=== PATIENT | female | born 1995 | race Caucasian/White ===

== ENCOUNTER 2023-01-31 13:39 | Observation (INO) | payer OTHER, MEDICAID, SELFPAY ==
--- NOTE | ~2023-01-31 | US_ITS ---
EXAMINATION: US renal BI DATE: 01/31/2023 16:22 INDICATION: Right flank pain TECHNIQUE: Multiple grayscale and Doppler ultrasound images of the kidneys were obtained. COMPARISON: None. FINDINGS: The right kidney measures 11.0 x 5.0 x 4.7 cm. A 6 mm hyperechoic focus of the right kidney upper pole likely represents a nonobstructing stone. The left kidney measures 11.2 x 5.0 x 5.1 cm. T he kidneys demonstrate normal parenchymal echogenicity. There is no hydronephrosis. The bladder is no rmal. IMPRESSION: 1. No sonographic correlate for the patient's symptoms. Reviewed, dictated and finalized at location L.
[2023-01-31 14:05] VITALS: BP 103/55; PULSE 82; RESP 20; TEMP 36.8; BMI 24.5
--- NOTE | 2023-01-31 14:07 | PC.NURSE ---
Dr. Aquino informed of this walk in's arrival by ambulance at 25 6/7 wks with c/o right flank pain that restarted this morning and has gotten progressively stronger and currently rates pain as a 9 out of 10. Pt has a history of kidney stones. Pt has a saline lock in from the ambulance. Orders received.
--- NOTE | 2023-01-31 14:10 | OBADM ---
This patient, Iesha Maza, admitted to the OB room [facility] for observation. Patient/family oriented to hospital policies and general routines including ID bracelet, bed and alarms, visiting hours, pain management, procedures, bathroom and other care routines, personal items, smoking policy, room service/diet, and visiting hours. Patient/Family are encouraged to report perceived risks to care and to ask questions if they do not understand what they are told or what they should do.
[2023-01-31 14:15] VITALS: BP 104/60; PULSE 76
--- NOTE | 2023-01-31 14:28 | PC.NURSE ---
Pt refused the Fentanyl for pain. Dr. Aquino OK'd IV Tylenol.
[2023-01-31] MEDS: DEXTROSE 5%/LACTATED RINGERS 1,000 ML 999 ML IV CONT (14:35)
[2023-01-31 14:58] LABS: Basophils Percent Auto 0.4 % (0.2-1.2); Eosinophils Absolute Auto 0.1 K/mm3 (0-0.3); Eosinophils Percent Auto 0.7 % (0-4.4); Hematocrit 31.7 % (37.0-47.0); Hemoglobin 10.7 g/dL (12.0-15.0); Immature Granulocyte Absolute 0.06 K/mm3 (0.00-0.031); Immature Granulocyte Percent A 0.6 % (0-0.5); Lymphocytes Absolute Auto 1.66 K/mm3 (0.9-3.2); Lymphocytes Percent Auto 16.7 % (18.3-44.2); Mean Corpuscular HGB Conc 33.8 g/dl (32-36); Mean Corpuscular Hemoglobin 32.4 pg (26-34); Mean Corpuscular Volume 96.1 fl (80-100); Mean Platelet Volume 9.8 fl (7.4-10.4); Monocytes Absolute Auto 0.5 K/mm3 (0.1-0.6); Monocytes Percent Auto 4.9 % (2.6-8.5); Neutrophils Absolute Auto 7.6 K/mm3 (1.3-6.7); Neutrophils Percent Auto 76.7 % (45.5-73.1); Platelet Count Result 171 k/mm3 (150-375); Red Cell Distribution Width 12.9 % (11.5-14.5); White Blood Count 9.9 K/mm3 (4.5-10.0)
[2023-01-31 15:02] LABS: Appearance Urine Clear (Clear); Bacteria Urine None Seen /hpf; Bilirubin Urine Negative (Negative); Blood Urine Negative (Negative); Color Urine Yellow (Yellow); Glucose Urine UA Negative (Negative); Ketones Urine Negative (Negative); Leukocyte Esterase Ur Trace LEU/UL (Negative); Nitrate Urine Negative (Negative); Non Pathogenic Casts 0-2; Protein Urine Negative (Negative); RBC Urine 0-2 /hpf (0-2); Squamous Epithelial Cell Urine None seen /hpf (Few); Urobilinogen Urine 0.2 mg/dL (<2.0); WBC Urine 0-5 /hpf; pH Urine 7.5 (5.0-9.0)
[2023-01-31 15:05] LABS: Add Urine Microscopic? YES
[2023-01-31 15:06] VITALS: BP 134/100; PULSE 86
[2023-01-31 15:10] LABS: Alanine Aminotransferase 17 U/L (6-35); Albumin Level 3.3 g/dL (3.5-5.1); Alkaline Phosphatase 54 U/L (38-126); Anion Gap 1 mmol/L (8-16); Aspartate Amino Transferase 18 U/L (14-36); Bilirubin,Total 0.4 mg/dL (0.2-1.3); Blood Urea Nitrogen 3 mg/dL (7-17); Calcium 8.2 mg/dL (8.4-10.2); Carbon Dioxide 28 mmol/L (22-30); Chloride 105 mmol/L (98-107); Estimated Glomerular Filt Rate > 60; Glucose 126 mg/dL (65-110); Potassium 3.6 mmol/L (3.4-5.0); Sodium 134 mmol/L (137-145)
[2023-01-31 15:16] VITALS: BP 111/58; PULSE 75
[2023-01-31 15:31] VITALS: BP 103/71; PULSE 72
--- NOTE | 2023-01-31 16:21 | PC.NURSE ---
Pt back from U/S and IV fluids restarted.
--- NOTE | 2023-01-31 16:25 | PC.NURSE ---
Heating pad applied to back.
--- NOTE | 2023-01-31 16:56 | PC.NURSE ---
Dr. Aquino informed of lab and U/S results. Pt refused the Fentanyl, but accepted the Tylenol. Informed MD that when I saw her urine was normal I further assessed her back and pt has a tight cord palpable on right side of back that goes up to by her right shoulder blade that she flinches when I touch. Heating pad was applied. Orders received.
[2023-01-31] MEDS: HYDROcodone/acetaminophen (*CRX) 5-325 MG TABLET 1 TAB PO (17:25)
[2023-01-31] MEDS: CYCLOBENZAPRINE HCL 10 MG TABLET PO (17:27)
[2023-01-31 19:02] VITALS: BP 106/55; PULSE 78
--- NOTE | 2023-02-24 22:05 | P.PNOB_ITS ---
OB - Triage/Final Diagnosis Visit Information Comments/Additional reasons for admission: I have assessed the risk for this patient, Iesha Maza, and determined that she would benefit from observation care. Evaluation Laboratory results: Laboratory Tests 01/31/23 14:51 WBC 9.9 RBC 3.30 L Hgb 10.7 L Hct 31.7 L MCV 96.1 MCH 32.4 MCHC 33.8 RDW 12.9 Plt Count 171 MPV 9.8 Immature Gran % (Auto) 0.6 H Neut % (Auto) 76.7 H Lymph % (Auto) 16.7 L [place] % (Auto) 4.9 Eos % (Auto) 0.7 Baso % (Auto) 0.4 Lymph # (Auto) 1.66 Riley # (Auto) 0.5 Eos # (Auto) 0.1 Baso # (Auto) 0.0 Abs Immat Gran (auto) 0.06 H Absolute Neuts (auto) 7.6 H Absolute Nucleated RBC 0.0 Nucleated RBC % 0.0 Sodium 134 L Potassium 3.6 Chloride 105 Carbon Dioxide 28 Anion Gap 1 L BUN 3 L Creatinine 0.50 L Estim Creat Clear Calc Not Reportable Estimated GFR > 60 Glucose 126 H Calcium 8.2 L Total Bilirubin 0.4 AST 18 ALT 17 Alkaline Phosphatase 54 Total Protein 7.0 Albumin 3.3 L Urine Color Yellow Urine Appearance Clear Urine pH 7.5 Ur Specific [place] 1.010 Urine Protein Negative Urine Glucose (UA) Negative Urine Ketones Negative Ur Blood (Man) Negative Urine Nitrate Negative Urine Bilirubin Negative Urine Urobilinogen 0.2 Leukocyte Esterase Rfl Trace H Urine RBC 0-2 Urine WBC 0-5 Ur Squamous Epith Cells None seen Urine Bacteria None seen Urine Casts 0-2 Final Diagnosis (1) Flank pain: Code(s): R10.9 - Unspecified abdominal pain Status: Acute
== END 2023-01-31 19:30 | disposition home or self-care (01) ==
PROVIDERS: Admitting Provider Obstetrics & Gynecology; Visit Provider Obstetrics & Gynecology
DX: O26.892 Other specified pregnancy related conditions, second trimester (principal); R10.9 Unspecified abdominal pain; Z3A.25 25 weeks gestation of pregnancy
CPT/HCPCS: 36415; 76775; 80053; 81001; 85025; 96374; A9270; G0378; G0379; J0131; J7121